=== PATIENT | female | born 1965 | race Asian ===

== ENCOUNTER 2016-12-02 03:53 | Inpatient (IN) | payer MEDICAID, OTHER ==
[~2016-12-02] VITALS: Ht 162.6 cm; Wt 58.6 kg
[2016-12-02] MEDS ORDERED: NITROGLYCERIN 2% 1 GM OINT PKT TD STA (06:19)
[2016-12-02] MEDS ORDERED: ASPIRIN 81 MG TAB PO STA (06:19)
[2016-12-02] MEDS ORDERED: NITROGLYCERIN (SL) 0.4 MG TAB SL PRN (06:30)
--- NOTE | 2016-12-02 06:31 | RADRPT ---
PROCEDURE: XR Chest. CLINICAL INDICATION: chest pain TECHNIQUE: Single frontal view of the chest was obtained COMPARISON: None FINDINGS: The heart and mediastinum are within normal limits. The lungs are clear. There is no pleural effusion or pneumothorax. RPTAT: AA IMPRESSION: No acute disease. .Dom Baptiste MD, Date Time Electronically viewed and signed by .Dom Baptiste MD, on 12/02/2016 06:31 .S/
[2016-12-02 07:16] LABS: ABNORMAL IP MESSAGE 1; BASOPHILS % 0.6 % (0.0-2.0); EOSINOPHILS # 0.2 10^3/ul (0.0-0.5); EOSINOPHILS % 3.7 % (0.0-7.0); HEMATOCRIT 38.7 % (37.0-47.0); HEMOGLOBIN 12.9 g/dl (12.0-16.0); LYMPHOCYTES % 30.8 % (15.0-51.0); MEAN CORPUSCULAR HEMOGLOBIN 30.1 pg (29.0-33.0); MEAN CORPUSCULAR HGB CONC 33.3 g/dl (32.0-37.0); MEAN CORPUSCULAR VOLUME 90.2 fl (82.0-101.0); MONOCYTE # 0.4 10^3/ul (0.3-0.9); MONOCYTES % 6.3 % (0.0-11.0); NEUTROPHILS % 58.1 % (39.0-77.0); RED BLOOD COUNT 4.29 10^6/ul (4.20-5.40); RED CELL DISTRIBUTION WIDTH 14.4 % (11.5-14.5); WHITE BLOOD COUNT 6.5 10^3/ul (4.8-10.8)
[2016-12-02 07:21] LABS: POSITIVE DIFF @See below
[2016-12-02 08:01] LABS: PLATELET COUNT 282 10^3/UL (140-415)
[2016-12-02 08:22] LABS: ADD UMIC YES; UR ASCORBIC ACID NEGATIVE (NEGATIVE); UR BILIRUBIN (Dip) NEGATIVE (NEGATIVE); UR BLOOD (Dip) NEGATIVE (NEGATIVE); UR CLARITY CLEAR (CLEAR); UR COLOR YELLOW (YELLOW); UR GLUCOSE (Dip) NEGATIVE (NEGATIVE); UR KETONES (Dip) NEGATIVE (NEGATIVE); UR LEUKOCYTE ESTERASE (Dip) TRACE Leu/ul (NEGATIVE); UR MUCUS FEW /HPF (NONE SEEN); UR NITRITE (Dip) NEGATIVE (NEGATIVE); UR RBC 0 /HPF (0-5); UR SPECIFIC GRAVITY (Dip) 1.018 (1.003-1.030); UR SQUAMOUS EPITHELIAL CELL FEW /HPF (FEW); UR TOTAL PROTEIN (Dip) NEGATIVE (NEGATIVE); UR UROBILINOGEN (Dip) NEGATIVE (NEGATIVE)
[2016-12-02 08:25] LABS: ANION GAP 10 (8-16); BLOOD UREA NITROGEN 7 mg/dl (7-20); CALCIUM 8.9 mg/dl (8.4-10.2); CARBON DIOXIDE 32 mmol/L (21-31); CHLORIDE 104 mmol/L (97-110); CREATININE 0.56 mg/dl (0.44-1.00); GLUCOSE 92 mg/dl (70-220); POTASSIUM 4.5 mmol/L (3.5-5.1); SODIUM 141 mmol/L (135-144)
[2016-12-02 08:36] LABS: TROPONIN-I < 0.012 ng/ml (0.00-0.12)
[2016-12-02] MEDS ORDERED: ACETAMINOPHEN 325 MG TAB PO PRN (09:00)
[2016-12-02] MEDS ORDERED: ONDANSETRON 4 MG INJ IV PRN (09:00)
--- NOTE | 2016-12-02 10:32 | ERA ---
ER Documentation Chief Complaint Date/Time DATE: 12/02/16 TIME: 10:29 Chief Complaint chest pain w/ so x 2 days HPI Patient is a 51-year-old female with a family history of coronary disease presents with chest pain. She has a pressure-like chest pain that started when she woke up on Thursday morning. She has shortness of breath as well. She feels the pain across her chest and feels radiation into her head. She feels overall weak and dizzy. She has left hand numbness initially that now is bilateral hands. She said her symptoms and chest pressure was worse this morning. She has had no treatment as of yet. Upon review of old medical records this is the patient's first visit to the emergency department. She is not currently have a primary doctor. ROS All systems reviewed and are negative except as per history of present illness. Medications Home Meds No Active Prescriptions or Reported Meds Allergies Allergies: Coded Allergies: No Known Allergy (Unverified , 12/02/16) PMhx/Soc History of Surgery: No Anesthesia Reaction: No Hx Neurological Disorder: No Hx Respiratory Disorders: No Hx Cardiac Disorders: No Hx Psychiatric Problems: No Hx Miscellaneous Medical Probl: No Hx Alcohol Use: No Hx Substance Use: No Hx Tobacco Use: Yes Smoking Status: Current some day smoker FmHx Family History: coronary disease, diabetes Physical Exam Vitals Vital Signs Date Time Temp Pulse Resp B/P Pulse Ox O2 Delivery O2 Flow Rate FiO2 12/02/16 09:45 63 20 99/69 97 Room Air 12/02/16 03:55 98.2 67 20 136/76 98 Physical Exam Const: Mild distress secondary to pain Head: Atraumatic Eyes: Normal Conjunctiva ENT: Normal External Ears, Nose and Mouth. Neck: Full range of motion..~ No meningismus. Resp: Clear to auscultation bilaterally Cardio: Regular rate and rhythm, no murmurs Abd: Soft, non tender, non distended. Normal bowel sounds Skin: No petechiae or rashes Back: No midline or flank tenderness Ext: No cyanosis, or edema Neur: Awake and alert Psych: Normal Mood and Affect Result Diagram: 12/02/16 0738 12/02/16 0738 Results 24 hrs Laboratory Tests Test 12/02/16 07:30 12/02/16 07:38 Urine Color YELLOW Urine Clarity CLEAR Urine pH 5.0 Urine Specific [place] 1.018 Urine Ketones NEGATIVEmg/dL Urine Nitrite NEGATIVEmg/dL Urine Bilirubin NEGATIVEmg/dL Urine Urobilinogen NEGATIVEmg/dL Urine Leukocyte Esterase TRACELeu/ul Urine Microscopic RBC 0/HPF Urine Microscopic WBC 2/HPF Urine Squamous Epithelial Cells FEW/HPF Urine Mucus FEW/HPF Urine Hemoglobin NEGATIVEmg/dL Urine Glucose NEGATIVEmg/dL Urine Total Protein NEGATIVEmg/dl White Blood Count 6.510^3/ul Red Blood Count 4.2910^6/ul Hemoglobin 12.9g/dl Hematocrit 38.7% Mean Corpuscular Volume 90.2fl Mean Corpuscular Hemoglobin 30.1pg Mean Corpuscular Hemoglobin Concent 33.3g/dl Red Cell Distribution Width 14.4% Platelet Count 11134^3/UL Mean Platelet Volume 11.0fl Neutrophils % 58.1% Lymphocytes % 30.8% Monocytes % 6.3% Eosinophils % 3.7% Basophils % 0.6% Nucleated Red Blood Cells % 0.0/100WBC Neutrophils # (Manual) 3.810^3/ul Lymphocytes # 2.010^3/ul Monocytes # 0.410^3/ul Eosinophils # 0.210^3/ul Basophils # 0.010^3/ul Nucleated Red Blood Cells # 0.010^3/ul Sodium Level 141mmol/L Potassium Level 4.5mmol/L Chloride Level 104mmol/L Carbon Dioxide Level 32mmol/L Anion Gap 10 Blood Urea Nitrogen 7mg/dl Creatinine 0.56mg/dl Glucose Level 92mg/dl Calcium Level 8.9mg/dl Troponin I < 0.012ng/ml Current Medications Medications (Trade) Dose Ordered Sig/Dena Route PRN Reason Start Time Stop Time Status Last Admin Dose Admin Aspirin (Aspirin) 162 mg ONCE STAT PO 12/02/16 06:19 12/02/16 06:20 DC 12/02/16 07:02 Nitroglycerin (Nitroglycerin 2% Oint) 1 inch ONCE STAT TD 12/02/16 06:19 12/02/16 06:20 DC 12/02/16 07:02 Nitroglycerin (Nitroglycerin (Sl Tab) 0.4 Mg) 1 tab Q5M UP TO 3 DOSES PRN SL CHEST PAIN 12/02/16 06:30 12/02/16 06:59 Ondansetron HCl (Zofran Inj) 4 mg ER BRIDGE PRN IV NAUSEA AND/OR VOMITING 12/02/16 09:00 12/03/16 08:59 Acetaminophen (Tylenol Tab) 650 mg ER BRIDGE PRN PO MILD PAIN/FEVER 12/02/16 09:00 12/03/16 08:59 Procedures/MDM EKG #1 read by me: Rate/Rhythm: Regular rate and rhythm at a normal rate Intervals: Normal Impression: No evidence of ischemia or arrhythmia EKG #2 read by me: Rate/Rhythm: Regular rate and rhythm at a normal rate Intervals: Normal Impression: No evidence of ischemia or arrhythmia Chest x-ray shows no pneumonia or pneumothorax. Patient is a 51-year-old female with a family history of coronary artery disease who presents with chest pain. Her symptoms are concerning for possible acute coronary syndrome and I do believe she needs admission for further evaluation and treatment. She was given aspirin and nitroglycerin empirically. At this point I doubt pneumonia, pneumothorax, pulmonary embolism, or aortic dissection. I spoke with the panel team for admission to a telemetry bed. Observation Note: Time: 4 hours Family Hx: Positive for diabetes Evaluation: Multiple exams showed improving symptoms and no evidence of clinical decompensation. Departure Diagnosis: Primary Impression: Chest pain Qualified Code: R07.9 - Chest pain, unspecified type Condition: ZAMZAM Monson MD Dec 02, 2016 10:32
[2016-12-02 11:45] VITALS: BP 110/69; PULSE 63; RESP 20; Ht 162.6 cm; Wt 58.6 kg
[2016-12-02 12:00] VITALS: PULSE 60
[2016-12-02 15:23] LABS: CREATINE KINASE 87 IU/L (23-200)
[2016-12-02 15:27] LABS: CK-MB 0.34 ng/ml (0.0-2.4)
[2016-12-02 15:29] LABS: TROPONIN-I < 0.012 ng/ml (0.00-0.12)
[2016-12-02 15:31] LABS: D-DIMER 605.2 ng/ml (<460)
[2016-12-02 16:00] VITALS: PULSE 68
--- NOTE | 2016-12-02 17:15 | HP ---
Date/Time of Note Date/Time of Note DATE: 12/02/16 TIME: 17:10 Assessment/Plan VTE Prophylaxis VTE Prophylaxis Intervention: LMWH Lines/Catheters IV Catheter Type (from Nrsg): Saline Lock Urinary Cath still in place: No Assessment/Plan Chief Complaint/Hosp Course 51 yo female wihtout PMH who presnets wtih CP syndrome and dysuria Chest pain: - Most likely chostondritis given marked reproducibility on palpation of chest wall - However, elevated d-dimer so will perform CT-PE. Empiric lovenox in the meantime - If CT negative can be discharged home - Troponins, EKG and history not consistent with an ACS. No risk factors. Nonanginal pain. No need for further cardiac w/u Dysuria: - UA not consistent with infection so will hold off on abx - Unclear etiology - Supporit care Discharge to home following CT if negative Problems: HPI/ROS Admit Date/Time Admit Date/Time Dec 02, 2016 at 08:36 Hx of Present Illness 51 [facility]. Presents today complaining of 2 weeks of pain in pelvis with dysuria. Concerned she has a UTI. Then Thursday morning she woke up from sleep with pain in her chest she has never experienced before. Pain is constant, has not resolved since it started. She feels pain with breathing, pain with palpation of chest wall. Radiates through her arms b/l. Pain at rest, constant. No recent URI symptoms, no cough, no fevers. No palpitations. Never had angina in her life. PMH/Family/Social Past Medical History Medical History: no pertinent history Past Surgical History Breast cyst as teenager Family History Significant Family History: heart disease Social History Alcohol Use: none Smoking Status: Former smoker Drug Use: none Exam/Review of Systems Vital Signs Vitals Vital Signs Date Time Temp Pulse Resp B/P Pulse Ox O2 Delivery O2 Flow Rate FiO2 12/02/16 16:00 68 12/02/16 11:45 98.2 20 110/69 96 Room Air Exam Exam Well appearing, comfortable, in NAD Aox3, pleasant CV: RRR, no m/r/g +++ Tenderness to palpation of chest wall Lungs clear Flat neck veins Abd soft nt nd Ext wihtout edema Labs Result Diagram: 12/02/16 0738 12/02/16 0738 Procedures Procedures EKG NSR, no ST changes DONNELL WILLIAM MD Dec 02, 2016 17:15
[2016-12-02] MEDS ORDERED: ENOXAPARIN 60 MG/0.6 ML SYG SC ONE (17:30)
[2016-12-02] MEDS ORDERED: NACL 0.9% 3 ML SYG IV SCH (17:30)
[2016-12-02] MEDS ORDERED: HYDROCODONE/APAP (5/325) TAB NGT PRN (18:00)
[2016-12-02 19:29] VITALS: BP 122/76; PULSE 61; RESP 18
[2016-12-02 20:04] LABS: CREATINE KINASE 85 IU/L (23-200)
[2016-12-02 20:18] LABS: CK-MB 0.26 ng/ml (0.0-2.4)
[2016-12-02 20:24] LABS: TROPONIN-I < 0.012 ng/ml (0.00-0.12)
[2016-12-02 22:01] VITALS: PULSE 65
[2016-12-02] MEDS ORDERED: IOHEXOL 350MG/ML 50 ML BTL ONE (22:42)
[2016-12-02] MEDS ORDERED: IOHEXOL 100 ML ONE (22:42)
[2016-12-02] MEDS ORDERED: SOD CHLORIDE 0.9% 100 ML ONE (22:42)
[2016-12-03] VITALS (8 sets, daily range): BP systolic 111–135; BP diastolic 67–87; PULSE 51–76; RESP 16
--- NOTE | 2016-12-03 00:17 | RADRPT ---
PROCEDURE: CTA Chest. CLINICAL INDICATION: Pain TECHNIQUE: Contiguous axial CT images were obtained from the thoracic inlet to the upper abdomen with the use of 115 cc of Omnipaque 350 nonionic intravenous contrast material. Coronal and sagittal reformations were obtained. 3-D re-formations were performed. The images were reviewed on a PACS w orkstation. The calculated radiation dose measures 241 mGy centimeters. The CTDI measures 28 mGy One or more of the following dose reduction techniques were used: Automated exposure control. Adjustment of the mA and/or kV according to patient size. Use of iterative reconstruction technique. COMPARISON: No prior studies are available for comparison. FINDINGS: The central pulmonary arteries are without evidence for filling defect to suggest pulmonary embolus or thrombus. The heart is normal in size and configuration. There is no pericardial effusion or thickening. The re is no hilar mediastinal adenopathy identified. The aorta is normal in configuration, without abby dence for dissection. There is a small calcified granuloma in the left upper lobe.. There is no pleural effusion or pneum othorax. The osseous structures are unremarkable. There is a right renal upper pole small renal cyst. IMPRESSION: 1. No CT evidence for pulmonary embolus. 2. No visualized consolidation. RPTAT: HBST .Paul Patrick MD, Date Time Electronically viewed and signed by .Paul Patrick MD, MD on 12/03/2016 00:16 .T/
[2016-12-03] MEDS ORDERED: KETOROLAC 15 MG INJ IV PRN (05:00)
--- NOTE | 2016-12-03 08:52 | PDOCDIS ---
Discharge Instructions CONDITION Patient Condition: Good ACTIVITY: Activity Restrictions: No Restrictions FOLLOW UP/APPOINTMENTS Follow-up Plan Establish care with a primary care provider Return to the hospital if you have any concerning symptoms DONNELL WILLIAM MD Dec 03, 2016 08:52
[2016-12-03] MEDS ORDERED: ENOXAPARIN 40 MG/0.4 ML SYG SC SCH (09:00)
--- NOTE | 2016-12-03 13:50 | DS ---
Date/Time of Note Date/Time of Note DATE: 12/03/16 TIME: 13:49 Discharge Summary Admission/Discharge Info Admit Date/Time Dec 02, 2016 at 08:36 Discharge Date/Time Discharge Diagnosis Chostochondritis Patient Condition: Good Hx of Present Illness 51 yo female [facility] significant PMH. Presents today complaining of 2 weeks of pain in pelvis with dysuria. Concerned she has a UTI. Then Thursday morning she woke up from sleep with pain in her chest she has never experienced before. Pain is constant, has not resolved since it started. She feels pain with breathing, pain with palpation of chest wall. Radiates through her arms b/l. Pain at rest, constant. No recent URI symptoms, no cough, no fevers. No palpitations. Never had angina in her life. [facility] 51 [facility] CP syndrome and dysuria. She was ruled out for ACS wiht EKG and biomarkers. Her d-dimer was elevated so underwent CT-Angio which was negative for PE. She was suspected of having chostochrondritis and recommend to take NSAIDs PRN. SHe will follow up with primary care physician. Home Meds No Active Prescriptions or Reported Meds Primary Care Provider Care Physician No Primary Pending Labs Laboratory Tests Test 12/02/16 14:18 12/02/16 14:19 12/02/16 19:01 Creatine Kinase 87IU/L (23-200) 85IU/L (23-200) Creatine Kinase Index 0.4 0.3 Creatinine Kinase MB (Mass) 0.34ng/ml (0.0-2.4) 0.26ng/ml (0.0-2.4) Troponin I < 0.012ng/ml (0.00-0.12) < 0.012ng/ml (0.00-0.12) C-Reactive Protein 1.0mg/dl (0.0-0.9) D-Dimer 605.20ng/ml (<460) D-Dimer Comment DONNELL WILLIAM MD Dec 03, 2016 13:50
== END 2016-12-03 14:30 | disposition home or self-care (01) | DRG 206 ==
LOC: E/R 03:53 → MS3 08:36
PROVIDERS: ADMIT Internal Medicine; ATTEND Internal Medicine
DX: M94.0 Chondrocostal junction syndrome [Tietze] (principal); R30.0 Dysuria
CPT/HCPCS: 36415; 71010; 71275; 80048; 81001; 82550; 82553; 84484; 85025; 85378; 86140; 93005; J1650; Q9967